=== PATIENT | male | born 1960 | race Caucasian/White ===

== ENCOUNTER 2024-02-26 07:14 | Day surgery (SDC) | payer OTHER, SELFPAY ==
[2024-02-26] VITALS (12 sets, daily range): BP systolic 121–173; BP diastolic 70–97; BMI 30.2
--- NOTE | 2024-02-26 08:11 | ITS.CL.CATH ---
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
Cardiac Catheterization
Procedure Report:
CARDIAC CATHETERIZATION REPORT
Date of Procedure: 02/26/2024
Referring: José Miguel Pantoja MD
Indication: Prior history of stent with chest discomfort and mildly abnormal stress test
HEMODYNAMIC DATA
AO: 148/84
LV: 148/21
LEFT VENTRICULOGRAPHY: Borderline anterolateral hypokinesis with EF 52%
CORONARY ANGIOGRAPHY
Dominance: Right
Left Main: Normal
LAD: There is a stent in the proximal LAD which appears undersized compared with the size of the vessel. There is 60% stenosis throughout the stented segment. There is mild luminal disease of the mid and distal LAD.
Circumflex: Trivial luminal disease
RCA: Large dominant vessel with mild luminal irregularities. The RCA terminates with a large PDA and a very large posterolateral system
FloWire assessment: At the conclusion of diagnostic study we proceeded with FloWire assessment of the LAD disease. Heparin was used for anticoagulation. A 6 [place] EBU 3.75 guide catheter was used. A MedaNext wire was passed into the distal LAD.
iFR measurements were equivocal at 0.89, 0.89, 0.89 and 0.89. Given these equivocal values we proceeded with FFR using adenosine 140 mcg/kg/min. Resting FFR was 0.89. Following adenosine the FFR fell to 0.78. This is consistent with
flow-limiting disease. Accordingly, a decision was made to proceed with proximal LAD stenting
Angioplasty: A BMW wire was passed with difficulty into the large diagonal branch originating from the diseased segment of LAD. A 3.5 x 23 Xience TRACE was implanted to cover the entire segment of disease with deployment pressure 16 rajinder. We then
postdilated the entire stented segment with a 3.75 mm noncompliant balloon. The angiographic result was outstanding with no residual stenosis and no compromise of the jailed diagonal branch. There were no procedural complications. Plavix 600 mg
was administered the procedure conclusion.
Closure Device: None-the procedure was performed via the right radial artery. The Arthur's test was normal prior to the procedure.
Radiation (mGy): 1134
DAP (cm2.Gy): 53.9
Fluoroscopy time: 10.8 minutes
CONCLUSIONS
1: Systemic hypertension
2: Borderline anterolateral hypokinesis with EF 52%
3. Single-vessel CAD as described-the proximal LAD disease (including previously placed stent in [place] in 2021) was flow-limiting by both IFR and FFR criteria prompting decision for PCI
4. Successful PCI of the proximal/mid LAD using 3.5 x 23 Xience fortunato point TRACE postdilated with 3.75 mm balloon with outstanding angiographic result
5. Recommend dual antiplatelet therapy for 12 months and continued aggressive risk factor modification efforts
Copy to: José Miguel Pantoja MD, Olu German MD ([place])
Óscar Saba MD, [facility], [facility]
[2024-02-26 08:32] LABS: ACT-LR - POC 237 Seconds (116-155)
[2024-02-26 08:54] LABS: ACT-LR - POC 248 Seconds (116-155)
[2024-02-26] MEDS: NSS 287 ML IV (09:43)
[2024-02-26] MEDS: LOW STRENGTH ASPIRIN 81 MG PO (09:43)
[2024-02-26 11:19] LABS: ACT-LR - POC > 397 Seconds (116-155)
--- NOTE | 2024-02-26 14:07 | W.PN.UPDATE ---
Update Note
Progress Note Update
63 yo male s/p PCI LAD x 1 TRACE (same day). He feels good, no cp, sob, gui diet, voiding, amb w/o dizziness, EKG SB no ST changes, R Rad site c/d/i no HT. He will be on DAPT ASA/Plavix. He will stop isosorbide. Cardiac rehab c/s. He will f/u
[facility] in 2-4 weeks. He is for d/c home after 2pm.
CONCLUSIONS
1: Systemic hypertension
2: Borderline anterolateral hypokinesis with EF 52%
3. Single-vessel CAD as described-the proximal LAD disease (including previously placed stent in [place] in 2021) was flow-limiting by both IFR and FFR criteria prompting decision for PCI
4. Successful PCI of the proximal/mid LAD using 3.5 x 23 Xience fortunato point TRACE postdilated with 3.75 mm balloon with outstanding angiographic result
5. Recommend dual antiplatelet therapy for 12 months and continued aggressive risk factor modification efforts
Copy to: José Miguel Pantoja MD, Olu German MD ([place])
== END 2024-02-26 15:30 | disposition home or self-care (01) ==
LOC: CATH 07:14
PROVIDERS: ATTENDING PHYSICIAN Internal Medicine Cardiovascular Disease; FAMILY PHYSICIAN Internal Medicine; OTHER PHYSICIAN Internal Medicine Cardiovascular Disease
DX: I25.10 Atherosclerotic heart disease of native coronary artery without angina pectoris (principal); R07.89 Other chest pain; R94.39 Abnormal result of other cardiovascular function study; Z95.5 Presence of coronary angioplasty implant and graft; I10 Essential (primary) hypertension; Z79.02 Long term (current) use of antithrombotics/antiplatelets; Z79.82 Long term (current) use of aspirin; E78.5 Hyperlipidemia, unspecified
CPT/HCPCS: 85347; 93005; 93458; 93571; C1725; C1769; C1874; C1894; C9600; J0153; Q9967

== ENCOUNTER 2024-10-31 07:31 | Day surgery (SDC) | payer OTHER, SELFPAY ==
[2024-10-31 07:45] VITALS: BP 174/85
[2024-10-31 07:51] VITALS: BMI 31.8
[2024-10-31] MEDS: LOW STRENGTH ASPIRIN 81 MG PO (08:17)
[2024-10-31] MEDS: NSS 293 ML IV (08:19)
[2024-10-31 09:11] VITALS: BP 145/75
--- NOTE | 2024-10-31 11:08 | ITS.CL.PN ---
Addendum entered and electronically signed by Simone Benitez MD 10/31/24 13:42:
Correction:
LV 149/10 (EDP 17) mmHg, consistent with mildly elevated LV filling pressure
AO 151/88 (mean 114) mmHg
Original Note:
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
Procedure
Procedure Note:
CARDIAC CATHETERIZATION REPORT
Date of Procedure: 10/31/2024
Referring: Dr. Francisco Pantoja MD
Indication: worsening anginal chest pain
PROCEDURE(S)
1. left heart catheterization
2. coronary angiography
ACCESS: 6F right radial artery (closure: radial band)
CATHETERS
1. 6F JR4
2. 6F JL3.5
MODERATE SEDATION: 25 minutes of moderate sedation was utilized. An independent medical transcriber was present to assist with and help manage the patient's level of consciousness and physiologic status.
ULTRASOUND GUIDED VASCULAR ACCESS (right radial artery): Ultrasound was utilized for vascular access. The vessel was visualized under ultrasound and noted to be patent. An image of the vessel was stored permanently in the patient's medical record.
Under direct ultrasound guidance, vascular access was obtained using a modified Seldinger technique and a 6 [place] sheath was placed.
HEMODYNAMIC DATA
LV 143/16 (EDP 24) mmHg
AO 144/66 (mean 95) mmHg
CORONARY ANGIOGRAPHY
Dominance: Right
LM: Large vessel with no disease
LAD: Large vessel giving rise to a moderate caliber D1 and small D2 before wrapping around the apex. There are patent stents in the proximal LAD. There is mild ~30-40% ostial pinching of the D1. There are otherwise mild luminal irregularities only
LCx: Large vessel giving rise to small OM1, small OM2, large OM3, and small LPL branch. There are mild luminal irregularities only.
RCA: Large vessel giving rise to a small RPDA and several small RPL branches. There are mild luminal irregularities only.
RADIATION: dose to 23 mGy; DAP 15.0 Gy*cm2; fluoroscopy time 5.8 min
CONCLUSIONS
1. coronary artery disease as described with patent prior stents and no obstructive lesions
2. moderately elevated LVEDP and no aortic stenosis
RECOMMENDATIONS
1. expectant management after cardiac catheterization via right radial approach
2. aggressive secondary prevention of coronary artery disease
3. management and treatment for ANOCA and diastolic heart failure
Copy to: Dr. Francisco Pantoja MD ([facility]); Dr. Olu Sawyer MD (PCP)
Signed: Simone Benitez MD, PhD
[2024-10-31 11:35] VITALS: BP 155/85
== END 2024-10-31 12:00 | disposition home or self-care (01) ==
LOC: CATH 07:31
PROVIDERS: ATTENDING PHYSICIAN Student in an Organized Health Care Education/Training Program; FAMILY PHYSICIAN Internal Medicine; OTHER PHYSICIAN Internal Medicine Cardiovascular Disease
DX: I25.119 Atherosclerotic heart disease of native coronary artery with unspecified angina pectoris (principal); R07.9 Chest pain, unspecified; Z95.5 Presence of coronary angioplasty implant and graft; I10 Essential (primary) hypertension; E78.5 Hyperlipidemia, unspecified; Z79.82 Long term (current) use of aspirin; Z79.01 Long term (current) use of anticoagulants; Z87.891 Personal history of nicotine dependence
CPT/HCPCS: 99152; 99153; C1894; 76937; 93458; Q9967